=== PATIENT | male | born 2000 | race Caucasian/White ===

== ENCOUNTER 2025-01-21 18:39 | Emergency (ER) | payer BC | END 2025-01-21 20:14 | disposition home or self-care (01) | LOC: CSHERS 18:39 | DX: S05.02XA Injury of conjunctiva and corneal abrasion without foreign body, left eye, initial encounter (principal); S05.01XA Injury of conjunctiva and corneal abrasion without foreign body, right eye, initial encounter; X58.XXXA Exposure to other specified factors, initial encounter | CPT/HCPCS: 99283 ==